=== PATIENT | male | born 1950 | race Caucasian/White ===

== ENCOUNTER → 2019-06-18 | Outpatient (CLI) | payer MEDICARE, OTHER ==
--- NOTE | 2019-06-18 16:41 | KCIC ---
Examination: Ultrasound left neck HISTORY: History of left neck fullness COMPARISON: None available Findings/ impression: 2 lymph nodes are seen on the left lateral neck measuring 5 mm and in the left submandibular region measuring 1.5 cm. Electronically signed by: Chace Millard MD (06/18/2019 4:38 PM) [id number]
== END | disposition home or self-care (01) ==
LOC: KCIC US 10:42
PROVIDERS: ATTEND Family Medicine
DX: M54.2 Cervicalgia (principal)
CPT/HCPCS: 76536